=== PATIENT | female | born 1955 | race African-American/Black ===

== ENCOUNTER 2021-12-20 04:02 | Day surgery (SDC) | payer OTHER, BC ==
[2021-12-16 14:52] VITALS: BMI 27.9
[2021-12-20 07:27] VITALS: RESP 20
[2021-12-20 10:48] VITALS: BP 134/75; PULSE 57; TEMP 97.3
== END 2021-12-20 10:49 | disposition home or self-care (01) ==
LOC: JASU-SURG 04:02
PROVIDERS: ATTEND Urology
PROC: 0TF3XZZ Fragmentation in Right Kidney Pelvis, External Approach (ICD-10-PCS; principal; 2021-12-20 09:30)
DX: N20.0 Calculus of kidney (principal)